=== PATIENT | male | born 1965 | race Hispanic/Latino ===

== ENCOUNTER 2023-11-14 05:49 | Emergency (ER) | payer OTHER ==
[2023-11-14] MEDS ORDERED: Ketorolac Tromethamine 30 MG (1 mL) VIAL ONE (07:10)
[2023-11-14] MEDS ORDERED: Methocarbamol 500 MG TAB ONE (07:10)
== END 2023-11-14 09:00 | disposition home or self-care (01) ==
LOC: ERS 05:49
DX: S16.1XXA Strain of muscle, fascia and tendon at neck level, initial encounter (principal); I10 Essential (primary) hypertension; E78.00 Pure hypercholesterolemia, unspecified; V40.0XXA Car driver injured in collision with pedestrian or animal in nontraffic accident, initial encounter; Y93.89 Activity, other specified; Y92.410 Unspecified street and highway as the place of occurrence of the external cause; Z55.6 Problems related to health literacy; Z75.3 Unavailability and inaccessibility of health-care facilities; Z79.899 Other long term (current) drug therapy
CPT/HCPCS: 70450; 72100; 72125; 96372; J1885